=== PATIENT | male | born 1990 | race Hispanic/Latino ===

== ENCOUNTER 2018-01-21 17:31 | Emergency (ER) | payer SELFPAY ==
[2018-01-21 20:17] VITALS: BP 133/71
--- NOTE | 2018-01-21 21:14 | Emergency Department Report ---
ED Lower Extremity HPI - General Chief Complaint: Extremity Injury, Lower Stated Complaint: TOE INFECTION Time Seen by Provider: 01/21/18 20:37 Source: patient Mode of arrival: Ambulatory Limitations: No Limitations - History of Present Illness Initial Comments: This is a 27-year-old male who presents with pain and bleeding to the right great toe nail. Patient states some right great toe while at work, around 1630 today. He reports some nail is loose and painful to touch. There is active bleeding and swelling around toe nail. Patient is unsure of last tetanus vaccine. He denies numbness or tingling, fever, weakness, or parasthesia. MD Complaint: foot injury (right great toe) -: This evening Time: 16:30 Injury: Toes: Right (great toe) Type of Injury: blunt Place: work Severity: moderate Severity scale (0 -10): 7 Improves With: nothing Worsens With: movement, palpation Context: direct blow Associated Symptoms: ambulatory - Related Data Previous Rx's Medication Instructions Recorded Last Taken Type Clindamycin [Clindamycin CAP] 300 mg PO Q8H #21 cap 01/21/18 Unknown Rx Ibuprofen [Motrin 800 MG tab] 800 mg PO Q8HR PRN #12 tablet 01/21/18 Unknown Rx Allergies Allergy/AdvReac Type Severity Reaction Status Date / Time No Known Allergies Allergy Unverified 01/21/18 17:36 ED Review of Systems ROS: Stated complaint: TOE INFECTION Other details as noted in HPI Constitutional: denies: chills, fever Respiratory: denies: cough, shortness of breath, wheezing Cardiovascular: denies: chest pain, palpitations Gastrointestinal: denies: abdominal pain, nausea, diarrhea Skin: other (loose right great toe nail, swelling, active bleeding). denies: rash, lesions Neurological: denies: headache, weakness, paresthesias Psychiatric: denies: anxiety, depression ED Past Medical Hx - Past Medical History Previous Medical History?: No - Surgical History Past Surgical History?: No - Social History Smoking Status: Never Smoker Substance Use Type: None - Medications Home Medications: Home Medications Medication Instructions Recorded Confirmed Last Taken Type Clindamycin [Clindamycin CAP] 300 mg PO Q8H #21 cap 01/21/18 Unknown Rx Ibuprofen [Motrin 800 MG tab] 800 mg PO Q8HR PRN #12 tablet 01/21/18 Unknown Rx ED Physical Exam - General Limitations: No Limitations General appearance: alert, in no apparent distress - Respiratory Respiratory exam: Present: normal lung sounds bilaterally. Absent: respiratory distress - Cardiovascular Cardiovascular Exam: Present: regular rate, normal rhythm. Absent: systolic murmur, diastolic murmur, rubs, gallop - GI/Abdominal GI/Abdominal exam: Present: soft, normal bowel sounds - Neurological Exam Neurological exam: Present: alert, oriented X3 - Psychiatric Psychiatric exam: Present: normal affect, normal mood - Skin Skin exam: Present: warm, dry, intact, normal color, other (right 1st toenail partial detachment from nail bed, mild serous discharge, tenderness). Absent: rash ED Course Vital Signs 01/21/18 01/21/18 01/21/18 17:36 20:16 21:43 Temperature 99.1 F 98.7 F Pulse Rate 74 64 Respiratory 18 16 18 Rate Blood Pressure 126/90 Blood Pressure 133/71 [Left] O2 Sat by Pulse 100 100 Oximetry - Procedure Description Procedures done: Nail removal: The area was prepared and draped in the usual, sterile manner. The site was anesthetized with 1% lidocaine without epinephrine. The proximal nail fold was already elevated from the nail plate. He free hemostat was than advanced under the free portion of the nail, twisted and turned until the entire nail seperated and removed. The wound was coopiously irrigated and triple antibiotic applied. Followup: The patient tolerated the procedure well without complications. Standard post-procedure care was explained and return precautions are given. ED Lower Extremity MDM - Medical Decision Making Patient was examined by this provider in fast track. Vitals are normal and patient is in no acute distress. Physical findings susceptible of contusion of right great toe. Given tramadol 50 mg by mouth and tetanus vaccine once while ER. Start clindamycin and ibuprofen. Plan discussed with patient to discharge home and treat outpatient. He agrees with ER plan. Patient discharged home in stable condition. Follow up with PCP in 2-3 days. Critical care attestation.: If time is entered above; I have spent that time in minutes in the direct care of this critically ill patient, excluding procedure time. ED Disposition Clinical Impression: Contusion of right great toe with damage to nail Qualifiers: Encounter type: initial encounter Qualified Code(s): S90.211A - Contusion of right great toe with damage to nail, initial encounter Disposition: DC- TO HOME OR SELFCARE Is pt being admited?: No Does the pt Need Aspirin: No Condition: Stable Instructions: Toenail/Fingernail Removal (ED) Additional Instructions: Complete full course of antibiotics as prescribed. Applied triple antibiotic ointment to wound twice a day for 7 days. Follow-up with your primary care provider within 2-3 days. Prescriptions: Clindamycin [Clindamycin CAP] 300 mg PO Q8H #21 cap Ibuprofen [Motrin 800 MG tab] 800 mg PO Q8HR PRN #12 tablet PRN Reason: Pain , Severe (7-10) Referrals: [facility] [place] [Outside] - 3-5 Days [facility] [Outside] - 3-5 Days [facility] [Outside] - 3-5 Days Forms: Work/School Release Form(ED) Time of Disposition: 22:20
[2018-01-21] MEDS ORDERED: ULTRAM PO ONE (21:16)
[2018-01-21] MEDS ORDERED: XYLOCAINE 1% MPF 5 mL INFILTRATI ONE (21:16)
[2018-01-21] MEDS ORDERED: BOOSTRIX IM ONE (21:16)
== END 2018-01-21 22:29 | disposition home or self-care (01) ==
LOC: ED 17:31
DX: S90.211A Contusion of right great toe with damage to nail, initial encounter (principal); X58.XXXA Exposure to other specified factors, initial encounter; Y93.89 Activity, other specified; Y92.89 Other specified places as the place of occurrence of the external cause; Y99.8 Other external cause status
CPT/HCPCS: 90471; 90715; 99282